=== PATIENT | female | born 1985 | race Caucasian/White ===

== ENCOUNTER → 2022-12-27 | Outpatient (CLI) | payer MEDICAID ==
[2022-12-27 10:28] LABS: BASO # 0.01 K/mm3 (0.02-0.10); EOS # 0.03 K/mm3 (0.04-0.40); EOS % 0.5 % (1.0-5.0); HEMATOCRIT 36.7 % (37.0-47.0); HEMOGLOBIN 11.6 g/dL (12.5-16.0); LYMPH# 2.21 K/mm3 (1.50-4.00); MEAN CELL VOLUME 86 fl (78-100); MEAN CORPUSCULAR HEMOGLOBIN 27 pg (27-31); MEAN CORPUSCULAR HGB CONC 32 g/dL (33-37); MEAN PLATELET VOLUME 9.2 fl (7.4-10.4); MONO # 0.39 K/mm3 (0.20-0.80); NEU # 2.84 K/mm3 (1.40-6.50); PLATELET COUNT 329 K/mm3 (130-400); RED BLOOD COUNT 4.26 M/mm3 (4.10-5.30); RED CELL DISTRIBUTION WIDTH 16.8 % (11.5-14.5); WHITE BLOOD COUNT 5.5 K/mm3 (4.8-10.8)
[2022-12-27 10:36] LABS: POTASSIUM 3.8 mmol/L (3.5-5.1); SODIUM 139 mmol/L (136-145)
[2022-12-27 10:37] LABS: CALCIUM 9.2 mg/dL (8.3-10.5)
[2022-12-27 10:38] LABS: GLUCOSE 85 mg/dL (65-105); TOTAL PROTEIN 6.7 g/dL (6.4-8.3)
[2022-12-27 10:39] LABS: CARBON DIOXIDE 26 mmol/L (22-29)
[2022-12-27 10:40] LABS: TOTAL BILIRUBIN 0.9 mg/dL (0.2-1.2)
[2022-12-27 10:43] LABS: AST-SGOT 17 U/L (5-34)
[2022-12-27 10:45] LABS: ALT/SGPT 11 U/L (0-55); LIPASE 24 U/L (8-78)
[2022-12-27 10:47] LABS: URINE APPEARANCE HAZY; URINE BILIRUBIN NEGATIVE (NEGATIVE); URINE BLOOD TRACE (NEGATIVE); URINE COLOR YELLOW; URINE GLUCOSE NEGATIVE (NEGATIVE); URINE KETONE NEGATIVE (NEGATIVE); URINE LEUKOCYTE ESTERASE TRACE (NEGATIVE); URINE NITRATE POSITIVE (NEGATIVE); URINE PROTEIN(semi-quant) NEGATIVE (NEGATIVE); URINE UROBILINOGEN NORMAL (NORMAL)
[2022-12-27 10:48] LABS: URINE MUCUS PRESENT (NOT PRESENT)
== END ==
LOC: LAB 10:03
PROVIDERS: Nurse Practitioner Family
DX: N39.0 Urinary tract infection, site not specified (principal)

== ENCOUNTER 2023-01-12 13:48 | Emergency (ER) | payer MEDICAID ==
[~2023-01-12] VITALS: Ht 167.6 cm; Wt 79.5 kg
[2023-01-12 14:07] VITALS: BP 120/78
[2023-01-12] MEDS ORDERED: AMPHETAMINE SAL20 M1 PO (14:39)
[2023-01-12] MEDS ORDERED: FAMOTIDINE20 MG PO (14:39)
[2023-01-12] MEDS ORDERED: ZOFRAN ODT4 MG PO (14:39)
[2023-01-12] MEDS ORDERED: BUPROPION XL450 MG PO (14:40)
[2023-01-12] MEDS ORDERED: ESCITALOPRAM10 MG PO (14:40)
== END 2023-01-12 15:45 | disposition home or self-care (01) ==
LOC: ED 13:48
DX: M79.671 Pain in right foot (principal); Z87.81 Personal history of (healed) traumatic fracture

== ENCOUNTER → 2023-04-13 | Outpatient (CLI) | payer MEDICAID ==
[~2023-04-13] MED LIST: ABILIFY2 MG; AMOXICILLIN AND1 TA2 PO; AMPHETAMINE SAL20 M1 PO; BUPROPION XL450 MG PO; CEFDINIR300 MG PO; ESCITALOPRAM10 MG PO; FAMOTIDINE20 MG PO; ORPHENADRINE C100 MG PO; PAXLOVID CO-PA1 EACH PO; PERCOCET 325 MG1 TA2 PO; PHENERGAN 25 TA25 MG PO; PROAIR HFA0.09 MG/AC IH; TRAMADOL 50 MG TAB PO; ZOFRAN ODT4 MG PO
== END ==
LOC: RAD 15:16
DX: S92.351A Displaced fracture of fifth metatarsal bone, right foot, initial encounter for closed fracture (principal); S92.341D Displaced fracture of fourth metatarsal bone, right foot, subsequent encounter for fracture with routine healing; Z98.890 Other specified postprocedural states

== ENCOUNTER → 2023-04-18 | Outpatient (CLI) | payer MEDICAID | LOC: LAB 16:16 | DX: Z20.822 Contact with and (suspected) exposure to COVID-19 (principal) ==

== ENCOUNTER → 2023-05-23 | Outpatient (CLI) | payer MEDICAID ==
[2023-05-23 12:47] LABS: BASO # 0.02 K/mm3 (0.02-0.10); EOS # 0.03 K/mm3 (0.04-0.40); EOS % 0.6 % (1.0-5.0); HEMATOCRIT 36.2 % (37.0-47.0); HEMOGLOBIN 11.6 g/dL (12.5-16.0); LYMPH# 1.71 K/mm3 (1.50-4.00); MEAN CELL VOLUME 89 fl (78-100); MEAN CORPUSCULAR HEMOGLOBIN 28 pg (27-31); MEAN CORPUSCULAR HGB CONC 32 g/dL (33-37); MEAN PLATELET VOLUME 9.9 fl (7.4-10.4); MONO # 0.47 K/mm3 (0.20-0.80); NEU # 2.81 K/mm3 (1.40-6.50); PLATELET COUNT 322 K/mm3 (130-400); RED BLOOD COUNT 4.09 M/mm3 (4.10-5.30); RED CELL DISTRIBUTION WIDTH 16.4 % (11.5-14.5)
[2023-05-23 12:54] LABS: URINE APPEARANCE CLOUDY (CLEAR); URINE BILIRUBIN NEGATIVE (NEGATIVE); URINE COLOR YELLOW (YELLOW); URINE GLUCOSE NEGATIVE (NEGATIVE); URINE KETONE NEGATIVE (NEGATIVE); URINE PROTEIN(semi-quant) NEGATIVE (NEGATIVE)
[2023-05-23 12:55] LABS: URINE BLOOD NEGATIVE (NEGATIVE); URINE LEUKOCYTE ESTERASE NEGATIVE (NEGATIVE); URINE NITRATE POSITIVE (NEGATIVE)
== END ==
LOC: LAB 12:22
PROVIDERS: Nurse Practitioner Family
DX: N93.9 Abnormal uterine and vaginal bleeding, unspecified (principal); N39.0 Urinary tract infection, site not specified

== ENCOUNTER 2023-06-23 13:43 | Emergency (ER) | payer MEDICAID ==
[~2023-06-23] VITALS: Ht 167.6 cm; Wt 87.3 kg
[2023-06-23] MEDS ORDERED: Acetaminophen 325 MG TAB PO ONE (14:30)
[2023-06-23 14:38] LABS: BASO # 0.01 K/mm3 (0.02-0.10); EOS # 0.03 K/mm3 (0.04-0.40); EOS % 0.4 % (1.0-5.0); HEMATOCRIT 39.6 % (37.0-47.0); HEMOGLOBIN 12.5 g/dL (12.5-16.0); LYMPH# 3.58 K/mm3 (1.50-4.00); MEAN CELL VOLUME 89 fl (78-100); MEAN CORPUSCULAR HEMOGLOBIN 28 pg (27-31); MEAN CORPUSCULAR HGB CONC 32 g/dL (33-37); MEAN PLATELET VOLUME 9.6 fl (7.4-10.4); MONO # 0.55 K/mm3 (0.20-0.80); NEU # 3.33 K/mm3 (1.40-6.50); PLATELET COUNT 364 K/mm3 (130-400); RED BLOOD COUNT 4.45 M/mm3 (4.10-5.30); RED CELL DISTRIBUTION WIDTH 15.7 % (11.5-14.5); WHITE BLOOD COUNT 7.5 K/mm3 (4.8-10.8)
[2023-06-23 14:41] LABS: ALBUMIN 4.1 g/dL (3.5-5.0)
[2023-06-23 14:43] LABS: CALCIUM 9.2 mg/dL (8.3-10.5)
[2023-06-23 14:44] LABS: TOTAL PROTEIN 7.3 g/dL (6.4-8.3)
[2023-06-23 14:46] LABS: TOTAL BILIRUBIN 0.7 mg/dL (0.2-1.2)
[2023-06-23] MEDS ORDERED: KEPPRA 500MG500 MG PO (15:48)
[2023-06-23 16:11] VITALS: BP 122/72
== END 2023-06-23 16:12 | disposition home or self-care (01) ==
LOC: ED 13:43
PROVIDERS: Family Medicine
DX: R56.9 Unspecified convulsions (principal); R51.9 Headache, unspecified; R00.0 Tachycardia, unspecified; E66.9 Obesity, unspecified

== ENCOUNTER 2023-07-01 13:04 | Emergency (ER) | payer MEDICAID ==
[~2023-07-01] VITALS: Ht 167.6 cm; Wt 79.5 kg
[~2023-07-01 13:04] MED LIST changes: +KEPPRA 500MG500 MG PO
[2023-07-01 13:48] LABS: BASO # 0.01 K/mm3 (0.02-0.10); EOS # 0.07 K/mm3 (0.04-0.40); EOS % 1.6 % (1.0-5.0); HEMATOCRIT 37.3 % (37.0-47.0); LYMPH# 1.95 K/mm3 (1.50-4.00); MEAN CELL VOLUME 88 fl (78-100); MEAN CORPUSCULAR HEMOGLOBIN 28 pg (27-31); MEAN CORPUSCULAR HGB CONC 32 g/dL (33-37); MEAN PLATELET VOLUME 9.5 fl (7.4-10.4); MONO # 0.34 K/mm3 (0.20-0.80); NEU # 2.08 K/mm3 (1.40-6.50); PLATELET COUNT 276 K/mm3 (130-400); RED BLOOD COUNT 4.23 M/mm3 (4.10-5.30); RED CELL DISTRIBUTION WIDTH 15.7 % (11.5-14.5); WHITE BLOOD COUNT 4.5 K/mm3 (4.8-10.8)
[2023-07-01 13:56] LABS: ALBUMIN 3.8 g/dL (3.5-5.0)
[2023-07-01 13:58] LABS: CALCIUM 9.1 mg/dL (8.3-10.5)
[2023-07-01 13:59] LABS: TOTAL PROTEIN 6.8 g/dL (6.4-8.3)
[2023-07-01 14:01] LABS: TOTAL BILIRUBIN 0.4 mg/dL (0.2-1.2)
[2023-07-01] MEDS ORDERED: Iohexol 300 - 100 ML VIAL IV ONE (14:47)
[2023-07-01 16:05] VITALS: BP 109/80
== END 2023-07-01 16:05 | disposition home or self-care (01) ==
LOC: ED 13:04
PROVIDERS: Physician Assistant
DX: J32.0 Chronic maxillary sinusitis (principal); G40.909 Epilepsy, unspecified, not intractable, without status epilepticus; M54.50 Low back pain, unspecified; Z79.899 Other long term (current) drug therapy
CPT/HCPCS: Q9967

== ENCOUNTER 2023-07-06 19:51 | Emergency (ER) | payer MEDICAID ==
[2023-07-06] MEDS ORDERED: KEPPRA750 M1 PO (20:14)
[2023-07-06] MEDS ORDERED: LEXAPRO 10MG10 MG PO (20:14)
[2023-07-06] MEDS ORDERED: oxyCODONE 5 MG TAB PO ONE (20:45)
[2023-07-06] MEDS ORDERED: LORazepam 0.5 MG TABLET PO ONE (21:30)
[2023-07-06] MEDS ORDERED: Home HYDROcodone/Acetaminophen 5/325 MG #4 TABS/PACK PO ONE (22:15)
[2023-07-06 22:25] VITALS: BP 98/74
== END 2023-07-06 22:25 | disposition home or self-care (01) ==
LOC: ED 19:51
DX: R56.9 Unspecified convulsions (principal); R51.9 Headache, unspecified

== ENCOUNTER → 2023-07-11 | Outpatient (CLI) | payer MEDICAID ==
[~2023-07-11] MED LIST changes: +KEPPRA750 M1 PO; +LEXAPRO 10MG10 MG PO
== END ==
LOC: RAD 12:24
DX: M79.671 Pain in right foot (principal); Z87.81 Personal history of (healed) traumatic fracture